=== PATIENT | female | born 1980 | race Two or more races ===

== ENCOUNTER 2020-06-14 07:12 | Outpatient (CLI) | payer OTHER | END 2020-06-14 23:59 | disposition home or self-care (01) | LOC: LAB 07:12 | PROVIDERS: ATTEND Orthopaedic Surgery | DX: Z01.812 Encounter for preprocedural laboratory examination (principal); Z20.822 Contact with and (suspected) exposure to COVID-19; M65.312 Trigger thumb, left thumb; M25.532 Pain in left wrist ==

== ENCOUNTER 2020-06-16 06:27 | Day surgery (SDC) | payer OTHER ==
[2020-06-16] MEDS ORDERED: PROPOFOL 200 MG/20 ML BOTTLE IV ONE (06:28)
[2020-06-16] MEDS ORDERED: CEFAZOLIN 1 G VIAL MC ONE (06:28)
[2020-06-16 06:57] LABS: *URINE HCG, QUAL NEGATIVE (NEGATIVE)
[2020-06-16] MEDS ORDERED: BUPIVACAINE PF 0.5% 30 ML VIAL ONE (07:40)
[2020-06-16] MEDS ORDERED: POLYMYXIN B SULFATE 500,000 UNITS, BACITRACIN 50,000 UNITS, NORMAL SALINE 20 ML MC ONE ×3 (07:45)
[2020-06-16] MEDS ORDERED: MIDAZOLAM HCL 10 MG/2 ML VIAL ONE (07:58)
[2020-06-16] MEDS ORDERED: LIDOCAINE 0.5% MPF 50 ML VIAL ONE (08:13)
[2020-06-16] MEDS ORDERED: FENTANYL CITRATE 100 MCG/2 ML AMPUL ONE ×2 (09:14→09:31)
[2020-06-16] MEDS ORDERED: TRAMADOL HCL 50 MG TABLET ONE (11:07)
== END 2020-06-16 11:25 | disposition home or self-care (01) ==
LOC: DS 06:27
PROVIDERS: ATTEND Orthopaedic Surgery
DX: M65.842 Other synovitis and tenosynovitis, left hand (principal); E66.9 Obesity, unspecified; Z79.899 Other long term (current) drug therapy; Z98.890 Other specified postprocedural states
CPT/HCPCS: 26055; 84703; J0690; J2250; J3010 ×2; J3490 ×4; J7120; A4649; A4663

== ENCOUNTER 2021-10-31 07:18 | Outpatient (CLI) | payer OTHER | END 2021-10-31 23:59 | disposition home or self-care (01) | LOC: LAB 07:18 | PROVIDERS: ATTEND Orthopaedic Surgery | DX: Z01.812 Encounter for preprocedural laboratory examination (principal); Z20.822 Contact with and (suspected) exposure to COVID-19 ==

== ENCOUNTER 2021-11-02 07:52 | Day surgery (SDC) | payer OTHER ==
[~2021-11-02 07:52] MED LIST: BUPIVACAINE PF 0.5% 30 ML VIAL ONE
[2021-11-02] MEDS ORDERED: DEXAMETHASONE SOD PHOSPHATE 4 MG INJ IV ONE (07:53)
[2021-11-02] MEDS ORDERED: PROPOFOL 200 MG/20 ML BOTTLE IV ONE (07:53)
[2021-11-02] MEDS ORDERED: ONDANSETRON 4 MG/2 ML VIAL IV ONE (07:53)
[2021-11-02] MEDS ORDERED: KETOROLAC TROMETHAMINE 30 MG INJ IM ONE (07:53)
[2021-11-02] MEDS ORDERED: MAG HYDROX/AL HYDROX/SIMETH 30 ML LIQUID UDC PO ONE (07:53)
[2021-11-02] MEDS ORDERED: SEVOFLURANE 250 ML BOTTLE IH ONE (07:53)
[2021-11-02] MEDS ORDERED: LIDOCAINE-MPF 2% 5 ML VIAL IJ ONE (07:53)
[2021-11-02] MEDS ORDERED: CEFAZOLIN 1 G VIAL IM ONE (07:53)
[2021-11-02] MEDS ORDERED: FENTANYL CITRATE 100 MCG/2 ML AMPUL ONE (08:55)
[2021-11-02 09:32] LABS: *URINE HCG, QUAL NEGATIVE (NEGATIVE)
[2021-11-02] MEDS ORDERED: TRIAMCINOLONE ACETONIDE 40 MG/1 ML VIAL ONE (10:03)
[2021-11-02] MEDS ORDERED: ONDANSETRON 4 MG/2 ML VIAL ONE (10:38)
[2021-11-02] MEDS ORDERED: HYDROMORPHONE 1 MG/1 ML DISP.SYRIN ONE (10:44)
[2021-11-02] MEDS ORDERED: METOCLOPRAMIDE HCL 10 MG/2 ML VIAL ONE (10:44)
== END 2021-11-02 13:30 | disposition home or self-care (01) ==
LOC: DS 07:52
PROVIDERS: ATTEND Orthopaedic Surgery
DX: M65.4 Radial styloid tenosynovitis [de Quervain] (principal); Z79.899 Other long term (current) drug therapy; Z90.49 Acquired absence of other specified parts of digestive tract; Z98.890 Other specified postprocedural states
CPT/HCPCS: 25000; 84703; 93005; J3490 ×2; J0690; J1100; J1885; J2765; J2405 ×2; J3301; J3010; J1170; J7120; A4565; A4649; A4663